=== PATIENT | female | born 1975 | race Caucasian/White ===

== ENCOUNTER 2023-09-20 21:46 | Emergency (ER) | payer OTHER, MEDICAID ==
[~2023-09-20] VITALS: Ht 152.4 cm; Wt 64.1 kg
--- NOTE | 2023-09-20 22:16 | NUR ---
Brianda wilson in ED - 09/20/23 at 2216 by SHAZIA PER MD C-COLLAR NOT APPLIED
--- NOTE | 2023-09-20 22:16 | NUR ---
PER PROVIDER C-COLLAR NOT APPLIED
[2023-09-20 22:49] VITALS: BP 133/91; PULSE 94; O2SAT 98
[2023-09-20] MEDS ORDERED: CYCL-1 PO (23:23)
[2023-09-20] MEDS ORDERED: IBUP-1984 PO (23:23)
[2023-09-20 23:55] VITALS: RESP 14
[2023-09-20 23:58] VITALS: TEMP 98.2
== END 2023-09-20 23:59 | disposition home or self-care (01) ==
LOC: ER 21:47
DX: R42 Dizziness and giddiness (principal); Z88.5 Allergy status to narcotic agent; V87.7XXA Person injured in collision between other specified motor vehicles (traffic), initial encounter; Y93.89 Activity, other specified; Y92.89 Other specified places as the place of occurrence of the external cause; Y99.8 Other external cause status
CPT/HCPCS: 70450; 72125; 99284

== ENCOUNTER 2023-10-02 15:54 | Emergency (ER) | payer MEDICAID ==
[~2023-10-02] VITALS: Ht 157.5 cm; Wt 65.7 kg
[~2023-10-02 15:54] MED LIST: CYCL-1 PO
[2023-10-02 16:15] VITALS: BP 104/80; PULSE 110; TEMP 98.7; O2SAT 94
[2023-10-02] MEDS ORDERED: cyclobenzaprine 10mg tablet PO ONE (16:20)
[2023-10-02 16:42] LABS: BILIRUBIN,URINE NEGATIVE (Neg); CLARITY,URINE CLOUDY (Clear); COLOR,URINE YELLOW (Yellow); GLUCOSE, URINE NEGATIVE (Neg); KETONES,URINE NEGATIVE (Neg); LEUKOCYTE ESTERASE ,URINE SMALL (Neg); NITRITES, URINE POSITIVE (Neg); OCCULT BLOOD,URINE TRACE-INTACT (Neg); PROTEIN,URINE NEGATIVE (Neg); UA COLLECTION TYPE CLN CATCH MIDSTREAM; UROBILINOGEN,URINE 0.2 E.U/dL (0.2-1.0)
[2023-10-02 16:46] VITALS: RESP 16
[2023-10-02 16:51] LABS: RBC,URINE 0-2 /HPF (0-2); WBC,URINE TNTC /HPF (0-4)
[2023-10-02 16:52] LABS: BACTERIA,URINE 4+ /HPF (Neg); MUCUS STRANDS NONE SEEN /LPF (Neg); SQUAMOUS EPITHELIAL CELL,UR MODERATE /LPF (FEW); WBC CLUMPS,URINE MODERATE /HPF (NEGATIVE)
[2023-10-02] MEDS ORDERED: CYCL-1 PO (17:25)
== END 2023-10-02 17:41 | disposition home or self-care (01) ==
LOC: ER 15:55
DX: N39.0 Urinary tract infection, site not specified (principal); M54.59 Other low back pain; Z88.5 Allergy status to narcotic agent; Z79.899 Other long term (current) drug therapy
CPT/HCPCS: 81001; 87077; 87088; 87186; 99283

== ENCOUNTER 2024-01-17 16:36 | Emergency (ER) | payer MEDICAID ==
[~2024-01-17] VITALS: Ht 152.4 cm; Wt 63.0 kg
[2024-01-17 16:46] VITALS: BP 141/110; PULSE 112; TEMP 98.6; O2SAT 99
[2024-01-17] MEDS: dexamethasone sod phosphate 10mg/ml inj IM STA (19:36)
[2024-01-17 19:37] VITALS: RESP 14
[2024-01-17] MEDS: ketorolac tromethamine 15mg/ml inj. IM ONE (19:37)
[2024-01-17] MEDS: metoclopramide 5 mg/ml inj IV ONE (19:37)
[2024-01-17] MEDS: diphenhydrAMINE 50 mg/ml inj IM ONE (19:38)
[2024-01-17] MEDS: ketorolac trometh inj. 60 MG/2 ML VIAL IM ONE (19:39)
== END 2024-01-17 19:49 | disposition home or self-care (01) ==
LOC: ER 16:36
DX: G43.909 Migraine, unspecified, not intractable, without status migrainosus (principal); Z88.5 Allergy status to narcotic agent; Z79.899 Other long term (current) drug therapy
CPT/HCPCS: 96372; 99284; J1100; J1200; J1885; J2765; 96374